=== PATIENT | female | born 1990 | race Caucasian/White ===

== ENCOUNTER 2017-04-15 09:01 | Emergency (ER) | payer OTHER ==
[2017-04-15 09:10] VITALS: TEMP 98.6; BMI 30.7
[2017-04-15] MEDS ORDERED: ONDANSETRON 4 MG/2 ML VIAL IVPUSH ONE (11:25)
[2017-04-15] MEDS ORDERED: morphine CARPU-JECT 4 MG/1 ML DISP.SYRIN IVPUSH ONE (11:25)
[2017-04-15] MEDS ORDERED: SODIUM CHLORIDE 1,000 ML IV STA (11:25)
--- NOTE | 2017-04-15 11:25 | PDOC ---
History of Present Illness - General History Source: Patient Exam Limitations: No Limitations - History of Present Illness Initial Comments: 04/15/17 11:27 The patient is a 27-year-old woman with a past medical history of who presents to the emergency department for further evaluation of flank pain for the past 2- 3 days. No trauma. No strenuous activity. Patient states that she has been experiencing right sided flank pain with associated right lower/upper quadrant pain, down her right groin that is sharp in nature, constant with a rated 10/10 in severity. She notes that her pain is exacerbated when bending forward and mildly alleviated when standing up. She reports associated symptoms of nausea. No vomiting, diarrhea. Patient also expresses that she is typically chronically constipated. She had a normal bowel movement this morning, but notes experiencing bright red rectal bleeding for the past month. She has not followed up with her PMD regarding this matter. No abdominal surgeries in the past. No history of blood clotting disorders. Patient is sexually active, last menstrual period was 03/21-03/27 and she is unsure is she is of not. She denies fever, chills, diaphoresis, generalized weakness. She denies chest pain, shortness of breath, cough She denies vomiting, diarrhea, dysuria, hematuria, urinary frequency and urgency , flank pain, vaginal discharge/vaginal bleeding Allergies: No Known Drug Allergies Past Surgical History: None reported Social History: Current everyday cigarette smoker. No EtOH and recreational drug use. Primary Care Physician: Dr. Alec Ruelas <Anitra Benson - Last Filed: 04/15/17 14:16> - General History Source: Patient Exam Limitations: No Limitations <Tamiko Das - Last Filed: 04/16/17 08:24> - General Chief Complaint: Pain Stated Complaint: RT SIDE/ABD PAIN Time Seen by Provider: 04/15/17 11:02 Past History <Anitra Benson - Last Filed: 04/15/17 14:16> - Past Medical History Thyroid Disease: No - Psycho/Social/Smoking Cessation Hx Anxiety: No Suicidal Ideation: No Smoking History: Current every day smoker Have you smoked in the past 12 months: Yes Number of Cigarettes Smoked Daily: 5 Information on smoking cessation initiated: No Hx Alcohol Use: No Drug/Substance Use Hx: No Substance Use Type: None <Tamiko Das - Last Filed: 04/16/17 08:24> - Past Medical History Allergies/Adverse Reactions: Allergies Allergy/AdvReac Type Severity Reaction Status Date / Time No Known Allergies Allergy Verified 04/15/17 09:10 Home Medications: Ambulatory Orders Nitrofurantoin Monohyd/M-Cryst [Macrobid -] 100 mg PO BID #14 capsule 04/15/17 Valacyclovir HCl [Valtrex -] 500 mg PO DAILY 04/15/17 Review of Systems - Review of Systems Able to Perform ROS?: Yes Comments:: 04/15/17 11:28 GENERAL/CONSTITUTIONAL: No: fever, chills, weakness, loss of appetite. HEAD, EYES, EARS, NOSE AND THROAT: No: change in vision, ear pain, discharge, sore throat, throat swelling. CARDIOVASCULAR: No: chest pain, lightheadedness, palpitations, syncope RESPIRATORY: No: cough, shortness of breath, wheezing, hemoptysis, stridor. GASTROINTESTINAL: Yes: Abdominal Pain. Nausea. No: vomiting, abdominal cramping , diarrhea, rectal bleeding, constipation. GENITOURINARY: Yes: Flank Pain. No: dysuria, hematuria, frequency, urgency. MUSCULOSKELET AL: No: back pain, neck pain, joint pain, muscle swelling or pain SKIN AND BREASTS: No: lesions, pallor, rash or easy bruising. NEUROLOGIC: No: headache, vertigo, paresthesias, weakness ENDOCRINE: No: unexplained weight gain or loss HEMATOLOGIC/LYMPHATIC: No: anemia, easy bleeding, swelling nodes <Anitra Benson - Last Filed: 04/15/17 14:16> *Physical Exam - Vital Signs Last Vital Signs Temp Pulse Resp BP Pulse Ox 98.6 F 68 18 118/60 100 04/15/17 09:07 04/15/17 09:07 04/15/17 09:07 04/15/17 09:07 04/15/17 09:07 - Physical Exam Comments: 04/15/17 11:29 GENERAL: Awake. Alert. The patient is in no acute distress. HEAD: Normal with no signs of trauma. EYES: PERRLA, EOMI, sclera anicteric, conjunctiva clear. ENT: Ears normal, nares patent, oropharynx clear without exudates. Moist mucous membranes. NECK: Normal range of motion, supple without lymphadenopathy, JVD, or masses. LUNGS: Breath sounds equal, clear to auscultation bilaterally. No wheezes, and no crackles. HEART:Regular rate and rhythm, normal S1 and S2 without murmur, rub or gallop. ABDOMEN: Soft, there is tenderness to palpation over the right upper quadrant. Normoactive bowel sounds. No guarding, no rebound. EXTREMITIES: Normal range of motion, no edema. No clubbing or cyanosis. No erythema, or tenderness. NEUROLOGICAL: Cranial nerves II through XII grossly intact. Normal speech. No focal neurological deficits. MUSCULOSKELETAL: Back non-tender to palpation, no CVA tenderness SKIN: Warm, Dry, normal turgor, no rashes or lesions noted. <Anitra Benson - Last Filed: 04/15/17 14:16> - Vital Signs Last Vital Signs Temp Pulse Resp BP Pulse Ox 98.6 F 68 18 118/60 100 04/15/17 09:07 04/15/17 09:07 04/15/17 09:07 04/15/17 09:07 04/15/17 09:07 <Tamiko Das - Last Filed: 04/16/17 08:24> ED Treatment Course - LABORATORY CBC & Chemistry Diagram: 04/15/17 11:07 04/15/17 11:07 - RADIOLOGY Radiograph Interpretation: 04/15/17 14:16 EXAM: US/ABDOMEN US -LIMITED ABDOMINAL ULTRASOUND WITH ATTENTION TO THE RIGHT UPPER QUADRANT Interpreted by Dr. Mitch Loya IMPRESSION: Grayscale ultrasound was utilized to evaluate the right upper quadrant of the abdomen. Color Doppler was utilized to assist evaluation of cystic and vascular structures. Findings: The liver is homogeneous in echotexture measuring 15.7 cm in longitudinal dimension. No hepatic mass is identified. There is no intrahepatic biliary ductal dilatation. The common bile duct measures 4.8 mm. The gallbladder is sonographically normal. No stones, sludge, wall thickening or pericholecystic fluid is identified. The pancreas is not visualized. The right kidney is unremarkable. Visualized abdominal aorta demonstrates no evidence of abdominal aortic aneurysm. Visualized IVC is unremarkable. Main portal vein demonstrates normal directional flow and normal waveform pattern. <Anitra Benson - Last Filed: 04/15/17 14:16> - LABORATORY CBC & Chemistry Diagram: 04/15/17 11:07 04/15/17 11:07 <Tamiko Das - Last Filed: 04/16/17 08:24> Medical Decision Making - Medical Decision Making 04/15/17 11:24 A portion of this note was documented by scribe services under my direction. I have reviewed the details of the note, within reason, and agree with the documentation with the following case summary and management plan written by me. Nursing documentation reviewed and incorporated into medical decision making This is a 27 yo F with no significant pMH who presents to the ER with a complaint of right sided abdominal pain No fevers or chills Pain associated with nausea No vomiting No diarrhea no constipation On examination: RUQ tenderness to palpation No involuntary guarding or rebound (+) welch's sign 04/15/17 11:55 Laboratory Tests 04/15/17 04/15/17 04/15/17 11:07 11:07 11:07 WBC 7.8 Hgb 12.9 Hct 39.1 Plt Count 327 Sodium 141 Potassium 4.4 Chloride 104 Carbon Dioxide 27 Anion Gap 10 BUN 8 Creatinine 0.7 Random Glucose 89 Serum , Qual Negative 04/15/17 14:56 Laboratory Tests 04/15/17 11:07 Urine Blood Negative Urine Nitrite Negative Ur Leukocyte Esterase Trace H Will treat with macrobid Will discharge to home Follow up with PMD Pt would like to go home micro not available for review Will start treatment I discussed the physical exam findings, ancillary test results and final diagnoses with the patient. I answered all of the patient's questions. The patient was satisfied with the care received and felt comfortable with the discharge plan and treatment plan. The patient will call their primary care physician within 24 hours to arrange follow-up and will return to the Emergency Department with any new, persistent or worsening symptoms. <Tamiko Das - Last Filed: 04/16/17 08:24> *DC/Admit/Observation/Transfer - Attestations Scribe Attestion: 04/15/17 11:29 Documentation prepared by Anitra Benson, acting as bilingual medical receptionist for Tamiko Das MD. <Anitra Benson - Last Filed: 04/15/17 14:16> - Discharge Dispostion Admit: No <Tamiko Das - Last Filed: 04/16/17 08:24> Diagnosis at time of Disposition: Abdominal pain Qualifiers: Abdominal location: right lower quadrant Qualified Code(s): R10.31 - Right lower quadrant pain - Discharge Dispostion Disposition: HOME Condition at time of disposition: Stable - Prescriptions Prescriptions: Nitrofurantoin Monohyd/M-Cryst [Macrobid -] 100 mg PO BID #14 capsule - Referrals Referrals: lAec Ruelas MD [Primary Care Provider] - - Patient Instructions Printed Discharge Instructions: DI for Abdominal Pain-Adult Additional Instructions: Thank you for coming in to the ER today Please take medications as prescribed for possible UTI Please return to the ER for any other concerns or complaints - Post Discharge Activity Work/School Note: Back to Work
[2017-04-15 11:26] LABS: BASOPHIL 0.6 % (0-2.0); MCH 28.4 pg (25.7-33.7); MEAN CELL VOLUME 86.1 fl (80-96); MEAN PLT VOLUME 7.7 fl (7.5-11.1); NEUTROPHILS 55.6 % (42.8-82.8); PLATELET COUNT 327 K/MM3 (134-434); RDW 14.8 % (11.6-15.6); WHITE BLOOD COUNT 7.8 K/mm3 (4.0-10.0)
[2017-04-15 11:47] LABS: ALBUMIN 3.6 g/dl (3.4-5.0); ANION GAP 10 (8-16); CALCIUM 8.8 mg/dL (8.5-10.1); CO2 27 mmol/L (21-32); GLUCOSE,RANDOM 89 mg/dL (74-106)
[2017-04-15 11:50] LABS: ALK PHOS 75 U/L (45-117); BILIRUBIN,TOTAL 0.3 mg/dL (0.2-1.0); CREATININE 0.7 mg/dL (0.55-1.02); SGOT/AST 15 U/L (15-37); SGPT/ALT 23 U/L (12-78)
[2017-04-15] MEDS ORDERED: ONDANSETRON 4 MG/2 ML VIAL ONE (11:52)
[2017-04-15] MEDS ORDERED: morphine CARPU-JECT 4 MG/1 ML DISP.SYRIN ONE (11:52)
[2017-04-15 14:42] LABS: URINE APPEARANCE CLEAR; URINE BILIRUBIN NEGATIVE (NEGATIVE); URINE BLOOD NEGATIVE (NEGATIVE); URINE COLOR STRAW; URINE GLUCOSE (UA) NEGATIVE (NEGATIVE); URINE KETONE NEGATIVE (NEGATIVE); URINE NITRITE NEGATIVE (NEGATIVE); URINE PROTEIN NEGATIVE (NEGATIVE); URINE UROBILINOGEN NEGATIVE E.U./dl (0.2-1.0)
[2017-04-15 14:51] LABS: URINE LEUK ESTERASE TRACE (NEGATIVE)
[2017-04-15 15:00] LABS: URINE MUCUS RARE; URINE RBC 1 /hpf (0-3); URINE WBC 2 /hpf (3-5)
[2017-04-15] MEDS ORDERED: NITROFURANTOIN MACROCRYSTAL 50 MG CAPSULE (FP) PO SCH (15:15)
[2017-04-15] MEDS ORDERED: NITROFURANTOIN MACROCRYSTAL 50 MG CAPSULE (FP) ONE (15:58)
[2017-04-15 16:03] VITALS: BP 125/72; PULSE 71
== END 2017-04-15 16:04 | disposition home or self-care (01) ==
LOC: JER 09:01
PROC: 3E033NZ Introduction of Analgesics, Hypnotics, Sedatives into Peripheral Vein, Percutaneous Approach (ICD-10-PCS; principal; 2017-04-15)
PROC: 3E0333Z Introduction of Anti-inflammatory into Peripheral Vein, Percutaneous Approach (ICD-10-PCS; 2017-04-15)
PROC: 3E0337Z Introduction of Electrolytic and Water Balance Substance into Peripheral Vein, Percutaneous Approach (ICD-10-PCS; 2017-04-15)
DX: R10.31 Right lower quadrant pain (principal); F17.210 Nicotine dependence, cigarettes, uncomplicated
CPT/HCPCS: 36415; 76705-TC; 80053; 81003; 81015; 84703; 85025; 87086; 96361; 96374; 96375; 99285-25